=== PATIENT | male | born 1990 | race Two or more races ===

== ENCOUNTER 2024-10-11 06:43 | Emergency (ER) | payer SELFPAY ==
[2024-10-11 06:50] VITALS: BMI 34.3
[2024-10-11] MEDS ORDERED: ACETAMINOPHEN INJECTION 100 ML ONE (07:29)
[2024-10-11] MEDS: ACETAMINOPHEN 1000 MG/100 ML BAG IVPB ONE (07:42)
[2024-10-11 08:07] LABS: CHLORIDE 105 mmol/L (98-107); POTASSIUM 3.5 mmol/L (3.5-5.1); SODIUM 139 mmol/L (136-145)
[2024-10-11 08:09] LABS: CALCIUM 8.4 mg/dL (8.5-10.1)
[2024-10-11 08:10] LABS: ALBUMIN 3.6 g/dl (3.4-5.0); ANION GAP 9 mmol/L (4-13); BLOOD UREA NITROGEN 12.4 mg/dL (7-18); CO2 25 mmol/L (21-32); GLUCOSE,RANDOM 113 mg/dL (74-106); MAGNESIUM 1.8 mg/dL (1.8-2.4)
[2024-10-11 08:13] LABS: CREATININE 1.1 mg/dL (0.55-1.3); SGOT/AST 24 U/L (15-37); SGPT/ALT 35 U/L (13-61)
[2024-10-11 08:15] LABS: BILIRUBIN,TOTAL 0.5 mg/dL (0.2-1); TOT PROT 6.9 g/dl (6.4-8.2)
[2024-10-11 08:16] LABS: ALK PHOS 67 U/L (45-117)
[2024-10-11 08:26] LABS: BASO % 0.6 % (0-2.0); EOS % 2.3 % (0-4.5); HEMATOCRIT 41.2 % (35.4-49); HEMOGLOBIN 14.5 GM/dL (11.7-16.9); MCH 28.6 pg (25.7-33.7); MCHC 35.3 g/dl (32.0-35.9); MEAN PLT VOLUME 8.2 fl (7.5-11.1); MONO % 9.9 % (3.8-10.2); NEUT % 53.2 % (42.8-82.8); PLATELET COUNT 174 10^3/uL (134-434); RBC 5.09 M/mm3 (4.00-5.60); RDW 13.3 % (11.9-15.9); WHITE BLOOD COUNT 7.3 K/mm3 (4.0-10.0)
[2024-10-11] MEDS: SODIUM CHLORIDE 500 ML IV STA (10:08)
[2024-10-11] MEDS ORDERED: INDOMETHACIN 50 MG CAPSULE PO ONE (10:22)
[2024-10-11 10:50] LABS: ERYTHROCYTE SEDIMENTATION RATE 6 mm/hr (0-10)
[2024-10-11] MEDS: INDOMETHACIN 25 MG CAPSULE PO ONE (11:32)
[2024-10-11 13:25] VITALS: BP 111/68; PULSE 61; RESP 20; TEMP 98
== END 2024-10-11 14:45 | disposition home or self-care (01) ==
LOC: JER 06:43
PROC: 3E033NZ Introduction of Analgesics, Hypnotics, Sedatives into Peripheral Vein, Percutaneous Approach (ICD-10-PCS; principal; 2024-10-11)
PROC: 3E0337Z Introduction of Electrolytic and Water Balance Substance into Peripheral Vein, Percutaneous Approach (ICD-10-PCS; 2024-10-11)
DX: I31.39 Other pericardial effusion (noninflammatory) (principal); R07.89 Other chest pain; F17.290 Nicotine dependence, other tobacco product, uncomplicated
CPT/HCPCS: 36415; 71045-TC-FY; 71275-TC; 80053; 83735; 84484; 85025; 85651; 86140; 93005; 93010; 93306-TC; 93308; 99285-25; J0131; Q9967